=== PATIENT | male | born 1990 | race Caucasian/White ===

== ENCOUNTER 2017-09-02 08:02 | Day surgery (SDC) | payer OTHER, SELFPAY ==
[2017-09-02] VITALS (7 sets, daily range): BP systolic 88–109; BP diastolic 49–67; PULSE 50–66; RESP 12–18; TEMP 36.3–36.6; O2SAT 97–100; BMI 25.1
--- NOTE | 2017-09-02 | PATH_ITS ---
[facility] Accession Number: [id number] . 01 Material submitted: . PART A: TERMINAL ILEUM PART B: RANDOM COLON PART C: RECTAL . 02 Diagnosis: A. Biopsies, Terminal Ileum: Multiple fragments of normal-appearing colon mucosa (see comment). Negative for significant architectural distortion. Negative for significant inflammation, dysplasia and malignancy. . B. Specimen Designated Random Colon Biopsies: Fragments of normal-appearing terminal ileum mucosa (see comment). Negative for granulomas. Negative for significant inflammation, dysplasia and malignancy. . C. Biopsies, Rectum: Multiple fragments of colon mucosa involved with chronic active colitis with superficial mucosal erosion. Negative for granulomas. Negative for dysplasia and malignancy. 09/03/2017 . 02 Comment: Part A was designated terminal ileum, but actually represents multiple fragments of normal-appearing colon mucosa. Likewise, part B was designated random colon biopsies, and actually consists of normal-appearing terminal ileum. It appears that the two specimens were mislabeled at the time of biopsy. . 02 Electronically signed: . Omkar Trotter MD, Pathologist NPI- [id number] . 01 Gross description: . Received are three formalin-filled containers, each labeled with the patient's name: . A. In a container labeled terminal ileum, are multiple less than 0.1 cm to 0.7 cm portion of tissue, entirely submitted in cassette A. B. In a container labeled random colon, are multiple 0.1-0.4 cm portions of tissue, entirely submitted in cassette B. C. In a container labeled rectal, are multiple 0.1-0.4 cm portions of tissue, which are filtered, wrapped, and entirely submitted in cassette C. ([id number]) /FRR . 02 Pathologist provided ICD-10: K51.90 . 02 CPT . 704977, 961968, 233742 Performed at: 01 [facility] [address] [place] [address], [place], [place] [id number] MD Chavo Shaikh MD Phone: [phone] Performed at: 02 [facility] [place] [address] [place], [place] [id number] MD Washington Nelson MD Phone: [phone]
[2017-09-02] MEDS: LACTATED RINGERS 1,000 ML 42 ML IV (08:29)
--- NOTE | 2017-09-02 08:31 | PM.PREOP ---
Pre-operative Note Interval Note Pre-op Check: History & Physical Reviewed by Physician, Exam Performed and Changes H&P completed within 30 days and has changed as indicated here:: Patient seen and examined today. No changes from his history physical examination as documented last week. Proceed with colonoscopy as planned today.
--- NOTE | 2017-09-02 09:07 | PM.OP.1 ---
Operative Date/Time/Diagnoses Date of procedure: 09/02/17 Time of procedure: 09:07 Pre-op diagnosis: Rectal bleeding Post-op diagnosis: other (Proctocolitis of unclear etiology) Procedure & Clinicians Procedure: Colonoscopy with cold forceps biopsies Same procedure as scheduled: Yes Indications: 27-year-old male who presented with rectal bleeding for 1 month. He was recommended to undergo colonoscopy. Because of his significant history of intravenous drug abuse including opioids and methamphetamine he required general anesthesia as he was high risk for adequate conscious sedation. Surgeon: Antonio Garcia Click Yes if Unassisted: Yes Anesthesia Type: General Operative Notes Findings: 1. Proctitis particularly of the distal rectum and anal canal but no evidence of fissures or fistulas. Inflammatory process mostly affected the distal 30 cm of the sigmoid colon and rectum. No ulcerations. 2. No evidence of external or internal hemorrhoid disease 3. Mildly inflamed terminal ileum 4. No evidence of neoplastic disease of any kind throughout the entire colon and rectum 5. No evidence of arterial venous malformations or diverticulosis 6. The majority of the colon otherwise appeared grossly normal the endoscopic examination but random biopsies were taken. 7. Excellent bowel preparation 8. Scope withdrawal time of 14:14 min Closure Type: not applicable Specimen(s): other (1. Terminal ileum biopsies 2. Random colon biopsies 3. Rectal biopsies) Implants & Drains: None Estimated Blood Loss (mL): 5 Blood products transfused: none Procedure in detail: After obtaining informed consent, the patient was brought to the GI suite and placed in the left lateral decubitus position on the examination table. After placement of appropriate monitors, the patient was given incremental doses of Versed and Fentanyl until an appropriate level of sedation was achieved. A time out was held per SCOAP protocol. A digital rectal examination was performed and did not reveal any masses or obstructing lesions. The colonoscope was gently passed into the patient's anus and the entire colon navigated to the level of the cecum with minimal difficulty. Terminal ileum was intubated. Once in the cecum, the scope was withdrawn being sure to go before and beyond all mucosal folds and prominences and get an excellent examination. The findings are noted above. At the level of the rectal vault, the scope was retroflexed and the internal anal canal was examined. The scope was straightened and air aspirated from the colon. The instrument was removed from the patient's body and the procedure was concluded. The patient was allowed to awaken from sedation without difficulty and taken to the post-anesthesia care unit in good condition. Complications: none Condition: stable Disposition: PACU Plan for aftercare: 1. Discharge to home 2. Follow up in surgery Clinic in 1 week to review biopsy results
== END 2017-09-02 09:52 | disposition home or self-care (01) ==
PROVIDERS: PCP Family Medicine; Visit Provider Surgery
PROC: 0DJD8ZZ Inspection of Lower Intestinal Tract, Via Natural or Artificial Opening Endoscopic (ICD-10-PCS; CPT 45378; principal; 2017-09-02 09:15)
DX: K51.90 Ulcerative colitis, unspecified, without complications (principal); F11.11 Opioid abuse, in remission; F15.11 Other stimulant abuse, in remission; Z87.891 Personal history of nicotine dependence
CPT/HCPCS: 45380; J2250; J2704; J3010